=== PATIENT | male | born 1995 ===

== ENCOUNTER → 2021-01-08 14:10 | Outpatient (CLI) | payer OTHER | END | disposition home or self-care (01) | LOC: PPH VACUNA 14:10 | DX: Z23 Encounter for immunization (principal) ==

== ENCOUNTER 2021-01-29 23:53 | Outpatient (CLI) | payer OTHER | END 2021-01-29 23:54 | disposition home or self-care (01) | LOC: PPH VACUNA 23:53 | DX: Z23 Encounter for immunization (principal) ==